=== PATIENT | female | born 2000 | race Caucasian/White ===

== ENCOUNTER 2020-07-13 15:22 | Emergency (ER) | payer SELFPAY ==
[~2020-07-13] VITALS: Ht 170.2 cm; Wt 70.8 kg
[2020-07-13 15:22] VITALS: BP_SYST 127
[2020-07-13] MEDS ORDERED: KETOROLAC TROMETHAMINE 60 MG/2 ML VIAL IM ONE (16:08)
[2020-07-13] MEDS: KETOROLAC TROMETHAMINE 60 MG/2 ML VIAL IM ONE (16:16)
[2020-07-13 16:24] LABS: BASOPHILS # (AUTO) 0.1 K/uL (0.0-0.2); BASOPHILS % (AUTO) 0.4 % (0.0-2.0); EOSINOPHILS # (AUTO) 0.1 K/uL (0.0-0.4); EOSINOPHILS % (AUTO) 0.7 % (0.0-4.0); HEMATOCRIT 38.4 % (36-48); HEMOGLOBIN 12.9 g/dL (12.0-16.0); LYMPHOCYTES # (AUTO) 1.4 K/uL (1.0-5.5); LYMPHOCYTES % (AUTO) 9.5 % (20.5-51.5); MEAN CORPUSCULAR HEMOGLOBIN 31 pg (27-31); MEAN CORPUSCULAR HGB CONC 34 % (32-36); MEAN CORPUSCULAR VOLUME 91 fL (79.0-98.0); MONOCYTES # (AUTO) 1.6 K/uL (0.0-1.0); NEUTROPHILS # (AUTO) 11.6 K/uL (1.8-7.7); NEUTROPHILS % (AUTO) 78.4 % (40.0-70.0); PLATELET COUNT (AUTO) 206 K/uL (130-430); RED BLOOD CELL COUNT(AUTO) 4.22 MIL/uL (4.2-6.2); RED CELL DISTRIBUTION WIDTH 12.5 % (9.0-15.0); WHITE BLOOD COUNT (AUTO) 14.8 K/uL (4.8-10.8)
[2020-07-13 17:02] LABS: BILIRUBIN,URINE NEGATIVE (NEGATIVE); BLOOD, URINE 1+ (NEGATIVE); COLOR,URINE YELLOW (YELLOW); GLUCOSE,URINE NEGATIVE (NEGATIVE); KETONES,URINE NEGATIVE (NEGATIVE); LEUKOCYTE ESTERASE ,URINE 3+ (NEGATIVE); NITRITE, URINE NEGATIVE (NEGATIVE); PROTEIN URINE NEGATIVE (NEGATIVE); UROBILINOGEN,URINE 0.2 (0.2-1.0)
[2020-07-13 17:10] LABS: ALBUMIN 3.5 g/dL (3.4-4.8); CALCIUM 9.1 mg/dL (8.4-11.0); CREATININE 0.74 mg/dL (0.55-1.30); POTASSIUM 3.8 mmol/L (3.5-5.1); TOTAL BILIRUBIN 0.4 mg/dL (0.0-1.0)
[2020-07-13 17:11] LABS: CLARITY/URINE HAZY (CLEAR)
[2020-07-13 17:12] LABS: PROTHROMBIN TIME 9.9 SECS (9.5-12.5)
[2020-07-13 17:20] LABS: BACTERIA,URINE MODERATE /HPF (None Seen); MUCUS,URINE None Seen /LPF (None Seen); URINE AMORPHOUS URATE 2+ /HPF (None Seen); WBC,URINE >100 /HPF (0-3)
[2020-07-13] MEDS ORDERED: IBUP-1969 PO (17:41)
[2020-07-13] MEDS ORDERED: NITR-85 PO (17:41)
[2020-07-13] MEDS ORDERED: LIDOCAINE 1%, 20 ML MDV 20 ML ONE (17:44)
[2020-07-13] MEDS ORDERED: cefTRIAXone 1 GM VIAL IM ONE (17:45)
[2020-07-13] MEDS: cefTRIAXone 1 GM in LIDOCAINE 1%, 20 ML MDV 2.1 ML IM ONE (17:47)
[2020-07-13 17:57] VITALS: BP_SYST 124
== END 2020-07-13 17:57 | disposition home or self-care (01) ==
LOC: SED 15:22
DX: N12 Tubulo-interstitial nephritis, not specified as acute or chronic (principal)
CPT/HCPCS: 36415; 74176; 76376; 80053; 81000; 81025; 82150; 83605; 83690; 84703; 85025; 85610; 85730; 87086; 96372; 99284; J0696; J1885; J2001